=== PATIENT | female | born 1945 | race Caucasian/White ===

== ENCOUNTER 2017-02-25 20:24 | Inpatient (IN) ==
[~2017-02-25 20:24] MED LIST: Aspirin 81 MG TAB.CHEW PO SCH
[2017-02-25 21:03] LABS: Bilirubin,Urine Negative (Negative); Blood,Urine Negative (Negative); Clarity,Urine Clear (Clear); Color,Urine Yellow (Yellow); Glucose,Urine (UA) Normal (Normal); Ketones,Urine Negative (Negative); Leukocyte Esterase,Urine Negative (Negative); Nitrite,Urine Negative (Negative); PH,Urine 6.5 pH Units (5.0-8.0); Protein,Urine Negative (Neg-Trace); Specific Gravity,Urine 1.013 (1.010-1.025); Urobilinogen,Urine Normal (Normal)
--- NOTE | 2017-02-25 21:28 | Emergency Department Note ---
Disposition Clinical Impression: Frail elderly, Obesity, History of diabetes mellitus, Cerebrovascular disease, History of hypertension, History of CVA (cerebrovascular accident), History of myocardial infarction, TIA (transient ischemic attack) Disposition: Admitted As Inpatient Forms: Work/School Release, ED Satisfaction Letter General Adult HPI - General Chief complaint: ED Weakness Stated complaint: Weakness Time Seen by Provider: 02/25/17 20:41 Source: EMS Limitations: no limitations - History of Present Illness HPI Narrative: 71-year-old female reports emergency department from the [facility] their concerns for left arm tingling and pain. The patient reports she felt poorly this morning and then developed left arm tingling and some slight weakness about 11 AM but things have resolved. There is no history of slurred speech or facial droop. No neck stiffness rash or fever. No convulsion or confusion. There is no history of lower extremity weakness or right upper extremity weakness. The patient reports she had a stroke a few years ago which affected her right side, she recovered after that. She describes a history of NC but has no coronary stents. She denies falls or injuries. There is no history of chest pain shortness of breath vomiting or diarrhea and no abdominal pain or acute back pain. No leg swelling or pain. The patient reports she had neck surgery, she does not have neck pain. She reports after the numbness and tingling went away she developed some pain in the left arm. There is no history of trauma no coldness blueness numbness of the extremities. There is no history of rash or cough. Pain Scale: 5 - Related Data Home Medications Medication Instructions Recorded Confirmed Aspirin 81 mg PO DAILY 02/25/17 02/25/17 Carvedilol 12.5 mg PO BID 02/25/17 02/25/17 Cholecalciferol (D-3) [Vitamin D] 1,000 unit PO DAILY 02/25/17 02/25/17 Cyanocobalamin (Vitamin B-12) 200 mcg PO BID 02/25/17 02/25/17 [Vitamin B-12] Cyclobenzaprine HCl 2.5 mg PO TID PRN 02/25/17 02/25/17 Diclofenac Sodium 2 gm TP BID 02/25/17 02/25/17 Furosemide [Lasix] 20 mg PO DAILY PRN 02/25/17 02/25/17 Nitroglycerin 0.2 mg TD DAILY 02/25/17 02/25/17 [place]-3/Dha/Epa/Fish Oil [Fish Oil 1 each PO DAILY 02/25/17 02/25/17 500 mg Softgel] Rosuvastatin Calcium [Crestor] 5 mg PO HS 02/25/17 02/25/17 amLODIPine [Norvasc] 5 mg PO DAILY 02/25/17 02/25/17 hydroCHLOROthiazide 6.25 mg PO DAILY 02/25/17 02/25/17 [Hydrochlorothiazide] Allergies Allergy/AdvReac Type Severity Reaction Status Date / Time acetaminophen Allergy See Verified 02/25/17 21:23 Comments amitriptyline Allergy See Verified 02/25/17 21:23 Comments aspirin Allergy See Verified 02/25/17 21:23 Comments atorvastatin Allergy See Verified 02/25/17 21:23 Comments caffeine Allergy See Verified 02/25/17 21:23 Comments Carbinoxamine Allergy See Verified 02/25/17 21:23 Comments Cefaclor Allergy See Verified 02/25/17 21:23 Comments cephalexin Allergy See Verified 02/25/17 21:23 Comments chlordiazepoxide Allergy See Verified 02/25/17 21:23 Comments codeine Allergy See Verified 02/25/17 21:23 Comments Cortisone Allergy See Verified 02/25/17 21:23 Comments Erythromycin Base Allergy See Verified 02/25/17 21:23 Comments fentanyl Allergy See Verified 02/25/17 21:23 Comments gabapentin Allergy See Verified 02/25/17 21:23 Comments hydrocodone Allergy See Verified 02/25/17 21:23 Comments hydroxyzine Allergy See Verified 02/25/17 21:23 Comments ibuprofen Allergy See Verified 02/25/17 21:23 Comments Iodinated Contrast- Oral and Allergy See Verified 02/25/17 21:23 IV Dye Comments iodine Allergy See Verified 02/25/17 21:23 Comments lansoprazole [From Prevacid] Allergy See Verified 02/25/17 21:23 Comments latex Allergy See Verified 02/25/17 21:23 Comments lidocaine Allergy See Verified 02/25/17 21:23 Comments milk Allergy See Verified 02/25/17 21:23 Comments morphine Allergy See Verified 02/25/17 21:23 Comments nalbuphine [From Nubain] Allergy See Verified 02/25/17 21:23 Comments naproxen [From Anaprox] Allergy See Verified 02/25/17 21:23 Comments nifedipine Allergy See Verified 02/25/17 21:23 Comments omeprazole Allergy See Verified 02/25/17 21:23 Comments prednisone Allergy See Verified 02/25/17 21:23 Comments Procaine Allergy See Verified 02/25/17 21:23 Comments propoxyphene Allergy See Verified 02/25/17 21:23 Comments shellfish derived Allergy See Verified 02/25/17 21:23 Comments Sulfa (Sulfonamide Allergy See Verified 02/25/17 21:23 Antibiotics) Comments Tetracycline Allergy See Verified 02/25/17 21:23 Comments trazodone Allergy See Verified 02/25/17 21:23 Comments tuna oil Allergy See Verified 02/25/17 21:23 Comments pentazocine [From Talwin] AdvReac See Verified 02/25/17 21:23 Comments All systems ED: reviewed and negative except as stated. Past Medical History - Past Medical History Medical history: Reports: CVA, diabetes, hypertension, myocardial infarction Psychiatric history: Reports: anxiety - Social History Smoking Status: Never smoker Smokeless Tobacco Status: No Alcohol use: Reports: none Drug use: Reports: none Physical Exam - General Limitations: no limitations General appearance: alert, in no apparent distress - Head Head exam: atraumatic, normocephalic, normal inspection - Eye Eye exam: Present: normal appearance, PERRL, EOMI - ENT ENT exam: normal exam, normal oropharynx, mucous membranes moist, TM's normal bilaterally, normal external ear exam - Neck Neck exam: Present: normal inspection, full ROM, trachea midline. Absent: tenderness - Chest Chest inspection: Present: symmetric chest wall rise. Absent: tenderness - Respiratory Respiratory exam: Present: normal lung sounds bilaterally. Absent: respiratory distress, wheezes, stridor, accessory muscle use, prolonged expiratory phase - Cardiovascular Cardiovascular exam: Present: regular rate, normal rhythm, normal heart sounds - Abdominal Exam Abdominal exam: Present: soft, Non-Tender, normal bowel sounds. Absent: tenderness, distention, guarding, rebound, rigidity, Ramirez's sign, Rovsing's sign, tenderness at McBurney's Point - Extremities Exam Extremities exam: Present: normal inspection, full ROM, normal capillary refill. Absent: tenderness, pedal edema, joint swelling, calf tenderness - Expanded Lower Extremity Exam Neurovascular/Tendon exam: Present: normal capillary refill. Absent: pulse deficit, motor deficit, sensory deficit, tendon deficit, extremity cold to touch , pallor - Back Exam Back exam: Present: normal inspection, full ROM. Absent: tenderness, CVA tenderness (R), CVA tenderness (L), vertebral tenderness - Neurological Exam Neurological exam: Present: alert, oriented X3, CN II-XII intact. Absent: motor sensory deficit - Psychiatric Psychiatric exam: Present: normal affect, normal mood - Skin Skin exam: Present: warm, dry, intact, normal color. Absent: rash, cyanosis, diaphoresis, erythema, pallor, mottled Course Vital Signs Temperature 98.3 F 02/25/17 20:28 Pulse Rate 71 02/25/17 20:28 Respiratory Rate 18 02/25/17 20:28 Blood Pressure 184/95 02/25/17 20:28 O2 Sat by Pulse Oximetry 97 02/25/17 20:28 Temperature 98.3 F 02/25/17 20:28 Pulse Rate 66 02/25/17 23:04 Respiratory Rate 18 02/25/17 23:04 Blood Pressure 151/74 02/25/17 23:04 O2 Sat by Pulse Oximetry 97 02/25/17 23:04 Oxygen Delivery Oxygen Delivery Room Air Medical Decision Making - MDM Narrative Medical decision making narrative: The patient has a history of a remote cerebral infarct, she also has a history of diabetes hypertension and CAD, she is complaining of left upper extremity numbness and tingling which has resolved. It started about 11 AM. But resolved essentially prior to arrival. The patient was seen at the [facility], they were concerned and sent her to the ED for further evaluation. The patient does not appear to have persistent defects and is essentially out of the window for a stroke alert. CT scan negative. Testing here reveals no major abnormalities in the patient appears to be neurologically stable. The patient is allergic to aspirin, none was ordered secondary to her concerns regarding allergy. Based on the patient's age, known diabetes, history of hypertension, CAD, and previous cerebrovascular event, with concerns for transient neurologic symptoms today, I thought it be appropriate to admit the patient to the hospital. I discussed the case with the hospitalist who has accepted the patient to their care. - Lab Data Lab results reviewed: Yes I reviewed the patient's lab results. Result diagrams: 02/25/17 21:33 02/25/17 21:33 Lab Results 02/25/17 02/25/17 02/25/17 Range/Units 20:55 21:33 21:33 WBC 9.8 (4.3-11.1) K/mcL RBC 5.18 H (3.82-4.97) M/mcL Hgb 14.0 (11.5-15.4) g/dL Hct 43.2 (35.3-44.9) % MCV 83.4 (83.0-100.0) fL MCH 27.0 L (28.0-33.3) pg MCHC 32.4 (31.6-35.5) g/dL RDW 14.5 (11.5-14.5) % Plt Count 301 (140-400) K/mcL MPV 9.1 L (9.4-12.4) fL Immature Gran % 0.5 (0-4) % Seg Neutrophils % 63.4 % Lymphocytes % 24.1 % Monocytes % 9.0 % Eosinophils % 2.6 % Basophils % 0.4 % Neutrophils # 6.2 (1.6-8.9) K/mcL Lymphocytes # 2.4 (0.6-4.6) K/mcL Monocytes # 0.9 (0.0-1.3) K/mcL Eosinophils # 0.3 (0.0-0.6) K/mcL Basophils # 0.0 (0.0-0.2) K/mcL PT 11.8 (9.4-12.1) Seconds INR 1.1 Sodium (136-145) mEq/L Potassium (3.5-4.5) mEq/L Chloride (98-109) mEq/L Carbon Dioxide (19-29) mEq/L BUN (7-20) mg/dL Creatinine (0.57-1.11) mg/dL Est GFR ( Amer) (> 60) Est GFR (Non-Af Amer) (> 60) BUN/Creatinine Ratio (6-26) Glucose (70-99) mg/dL Calculated Osmolality (280-300) Lactic Acid (0.5-2.2) mmol/L Calcium (8.6-10.8) mg/dL Total Bilirubin (0.2-1.2) mg/dL Direct Bilirubin (0.0-0.5) mg/dL Indirect Bilirubin (0.0-1.2) mg/dL AST (5-34) Units/L ALT (0-55) Units/L Alkaline Phosphatase (38-126) Units/L Troponin I (0-0.03) ng/mL C-Reactive Protein (Less than 5) mg/L Serum Total Protein (6.0-8.3) g/dL Albumin (3.5-5.0) g/dL Globulin (2.4-3.5) g/dL Albumin/Globulin Ratio (1.1-2.2) Urine Color Yellow (Yellow) Urine Clarity Clear (Clear) Urine pH 6.5 (5.0-8.0) pH Units Ur Specific [place] 1.013 (1.010-1.025) Urine Protein Negative (Neg-Trace) mg/dL Urine Glucose (UA) Normal (Normal) mg/dL Urine Ketones Negative (Negative) mg/dL Urine Blood Negative (Negative) Urine Nitrite Negative (Negative) Urine Bilirubin Negative (Negative) Urine Urobilinogen Normal (Normal) mg/dL Ur Leukocyte Esterase Negative (Negative) Ur Culture Indicated? NO (NO) 02/25/17 02/25/17 02/25/17 Range/Units 21:33 21:33 21:33 WBC (4.3-11.1) K/mcL RBC (3.82-4.97) M/mcL Hgb (11.5-15.4) g/dL Hct (35.3-44.9) % MCV (83.0-100.0) fL MCH (28.0-33.3) pg MCHC (31.6-35.5) g/dL RDW (11.5-14.5) % Plt Count (140-400) K/mcL MPV (9.4-12.4) fL Immature Gran % (0-4) % Seg Neutrophils % % Lymphocytes % % Monocytes % % Eosinophils % % Basophils % % Neutrophils # (1.6-8.9) K/mcL Lymphocytes # (0.6-4.6) K/mcL Monocytes # (0.0-1.3) K/mcL Eosinophils # (0.0-0.6) K/mcL Basophils # (0.0-0.2) K/mcL PT (9.4-12.1) Seconds INR Sodium 138 (136-145) mEq/L Potassium 4.1 (3.5-4.5) mEq/L Chloride 104 (98-109) mEq/L Carbon Dioxide 24 (19-29) mEq/L BUN 17 (7-20) mg/dL Creatinine 0.85 (0.57-1.11) mg/dL Est GFR ( Amer) > 60 (> 60) Est GFR (Non-Af Amer) > 60 (> 60) BUN/Creatinine Ratio 20 (6-26) Glucose 120 H (70-99) mg/dL Calculated Osmolality 289 (280-300) Lactic Acid 1.1 (0.5-2.2) mmol/L Calcium 10.2 (8.6-10.8) mg/dL Total Bilirubin 0.7 (0.2-1.2) mg/dL Direct Bilirubin 0.2 (0.0-0.5) mg/dL Indirect Bilirubin 0.5 (0.0-1.2) mg/dL AST 18 (5-34) Units/L ALT 20 (0-55) Units/L Alkaline Phosphatase 88 (38-126) Units/L Troponin I 0.00 (0-0.03) ng/mL C-Reactive Protein 8 H (Less than 5) mg/L Serum Total Protein 7.8 (6.0-8.3) g/dL Albumin 3.8 (3.5-5.0) g/dL Globulin 4.0 H (2.4-3.5) g/dL Albumin/Globulin Ratio 1.0 L (1.1-2.2) Urine Color (Yellow) Urine Clarity (Clear) Urine pH (5.0-8.0) pH Units Ur Specific [place] (1.010-1.025) Urine Protein (Neg-Trace) mg/dL Urine Glucose (UA) (Normal) mg/dL Urine Ketones (Negative) mg/dL Urine Blood (Negative) Urine Nitrite (Negative) Urine Bilirubin (Negative) Urine Urobilinogen (Normal) mg/dL Ur Leukocyte Esterase (Negative) Ur Culture Indicated? (NO) - Radiology Data Radiology results reviewed: Yes I reviewed the patient's radiology results.
[2017-02-25 21:41] LABS: Basophils % 0.4 %; Eosinophils # 0.3 K/mcL (0.0-0.6); Eosinophils % 2.6 %; Hematocrit 43.2 % (35.3-44.9); Immature Granulocytes % 0.5 % (0-4); Lymphocytes # 2.4 K/mcL (0.6-4.6); Lymphocytes % 24.1 %; Mean Corpuscular HGB Conc 32.4 g/dL (31.6-35.5); Mean Corpuscular Volume 83.4 fL (83.0-100.0); Mean Platelet Volume 9.1 fL (9.4-12.4); Monocytes # 0.9 K/mcL (0.0-1.3); Neutrophils # 6.2 K/mcL (1.6-8.9); Platelet Count 301 K/mcL (140-400); Red Blood Count 5.18 M/mcL (3.82-4.97); Red Cell Distribution Width 14.5 % (11.5-14.5); Segmented Neutrophils % 63.4 %
[2017-02-25 21:47] LABS: INR 1.1; Prothrombin Time 11.8 Seconds (9.4-12.1)
[2017-02-25 21:57] LABS: Alanine Aminotransferase 20 Units/L (0-55); Albumin 3.8 g/dL (3.5-5.0); Alkaline Phosphatase 88 Units/L (38-126); Aspartate Amino Transferase 18 Units/L (5-34); BUN/Creatinine Ratio 20 (6-26); Bilirubin,Direct 0.2 mg/dL (0.0-0.5); Bilirubin,Indirect 0.5 mg/dL (0.0-1.2); Bilirubin,Total 0.7 mg/dL (0.2-1.2); Blood Urea Nitrogen 17 mg/dL (7-20); C-Reactive Protein 8 mg/L (Less than 5); Calcium 10.2 mg/dL (8.6-10.8); Carbon Dioxide 24 mEq/L (19-29); Chloride 104 mEq/L (98-109); Glucose 120 mg/dL (70-99); Osmolality,Calculated 289 (280-300); Potassium 4.1 mEq/L (3.5-4.5); Sodium 138 mEq/L (136-145); Total Protein 7.8 g/dL (6.0-8.3); eGFR For African Americans > 60 (> 60); eGFR For Non-African Americans > 60 (> 60)
--- NOTE | 2017-02-25 23:35 | Internal Med History&Physical ---
<Reid Howell - Last Filed: 02/26/17 02:20> Date of Encounter: 02/26/17 Time of Encounter: 23:35 Assessment and Plan (1) CVA (cerebral vascular accident) Current visit: Yes Status: Acute Residual left arm weakness and numbness. Prior CVA with no residual deficits. CT brain negative. MRI brain ordered. Carotid U/S pending. Echo pending Give ASA 325mg now, Continue regular ASA 81mg daily (patient reports abdominal discomfort from enteric coated ASA) PT/OT/ST consulted Bedside swallow eval pending Continue to monitor Neurology consulted, please call/ notify neurology in AM Qualifiers: CVA mechanism: unspecified Qualified Code(s): I63.9 - Cerebral infarction, unspecified (2) CAD (coronary artery disease) Current visit: Yes Status: Acute No cardiac stents. Continue to monitor. PAtient takes NTG patch for CP daily prn Recommend ASA daily and continued statin. Qualifiers: Coronary Disease-Associated Artery/Lesion type: unspecified vessel or lesion type [place] vs. transplanted heart: [place] heart Associated angina: angina presence unspecified Qualified Code(s): I25.10 - Atherosclerotic heart disease of [place] coronary artery without angina pectoris (3) HLD (hyperlipidemia) Current visit: Yes Status: Acute Lipid panel pending. Continue home med: Crestor Qualifiers: Hyperlipidemia type: unspecified Qualified Code(s): E78.5 - Hyperlipidemia , unspecified (4) HTN (hypertension) Current visit: Yes Status: Acute Continue home Meds: Coreg, HCTZ, Lasix, Norvasc (patient denies allergy to Nifedipine even though its on her allergy list, nurse will remove it from allergy list) Qualifiers: Hypertension type: unspecified Qualified Code(s): I10 - Essential (primary ) hypertension (5) Chronic pain disorder Current visit: Yes Status: Acute Pain is in pain management for chronic back/ neck pain. Continue pain control (6) History of diabetes mellitus Current visit: Yes Status: Acute Diet controlled. Continue corrective dose SSI (7) Morbid obesity with BMI of 40.0-44.9, adult Current visit: Yes Status: Acute Discussed diet modification and exercise (8) DVT prophylaxis Current visit: Yes Status: Acute Heparin SubQ TID Internal Medicine - H&P: HPI Chief complaint: Left arm weakness Admitted From: Home Plans for Post Hospital Care: Home History of present illness: Ms. Grossman is a 71 year old female with a PMH of CVA, DM, hypertension, and CAD [facility] c/o left arm tingling and weakness since about 11 AM. She reports ongoing numbness and tingling and she now has pain in the left arm and right face tingling. Patient reports waiting until this evening to come to the ED because she thought the symptoms would go away. She reports prior h/o neck surgery but denies contralateral upper extremity tingling, weakness, or pain. Patient reports recovering from a stroke a few years ago which affected her right side. Patient reports abdominal discomfort from enteric coated Aspirin. Patient denies fever, chills, CP, SOB, abd pain, N/ V/D, confusion, slurred speech, vision changes, facial droop, neck stiffness, recent trauma, rash, lower extremity weakness, or right upper extremity weakness. Past Med Surg Social Fam HX - Past Medical History Medical history: coronary artery disease, CVA, diabetes, hypertension, myocardial infarction Psychiatric history: anxiety - Past Surgical History Surgical History: orthopedic, other (plate in neck) - Social History Smoking Status: Never smoker Smokeless Tobacco Status: No Alcohol use: none Drug use: none Current living situation: Home, With Family Activity Level: Independent ambulation - Family History Mother Hx Family Cancer: Yes (breast) Hx Family Endocrine Disorder: Yes (DM) Father Hx Family Cancer: Yes (lung) Internal Medicine - H&P: Meds Aspirin 81 mg PO DAILY 02/25/17 [History] Carvedilol 12.5 mg PO BID 02/25/17 [History] Cholecalciferol (D-3) [Vitamin D] 1,000 unit PO DAILY 02/25/17 [History] Cyanocobalamin (Vitamin B-12) [Vitamin B-12] 200 mcg PO BID 02/25/17 [History] Cyclobenzaprine HCl 2.5 mg PO TID PRN 02/25/17 [History] Diclofenac Sodium 2 gm TP BID 02/25/17 [History] Furosemide [Lasix] 20 mg PO DAILY PRN 02/25/17 [History] Nitroglycerin 0.2 mg TD DAILY 02/25/17 [History] [place]-3/Dha/Epa/Fish Oil [Fish Oil 500 mg Softgel] 1 each PO DAILY 02/25/17 [ History] Rosuvastatin Calcium [Crestor] 5 mg PO HS 02/25/17 [History] amLODIPine [Norvasc] 5 mg PO DAILY 02/25/17 [History] hydroCHLOROthiazide [Hydrochlorothiazide] 6.25 mg PO DAILY 02/25/17 [History] 3 Allergy/AdvReac Type Severity Reaction Status Date / Time acetaminophen Allergy See Verified 02/25/17 21:23 Comments amitriptyline Allergy See Verified 02/25/17 21:23 Comments atorvastatin Allergy See Verified 02/25/17 21:23 Comments caffeine Allergy See Verified 02/25/17 21:23 Comments Carbinoxamine Allergy See Verified 02/25/17 21:23 Comments Cefaclor Allergy See Verified 02/25/17 21:23 Comments cephalexin Allergy See Verified 02/25/17 21:23 Comments chlordiazepoxide Allergy See Verified 02/25/17 21:23 Comments codeine Allergy See Verified 02/25/17 21:23 Comments Cortisone Allergy See Verified 02/25/17 21:23 Comments Erythromycin Base Allergy See Verified 02/25/17 21:23 Comments fentanyl Allergy See Verified 02/25/17 21:23 Comments gabapentin Allergy See Verified 02/25/17 21:23 Comments hydrocodone Allergy See Verified 02/25/17 21:23 Comments hydroxyzine Allergy See Verified 02/25/17 21:23 Comments ibuprofen Allergy See Verified 02/25/17 21:23 Comments Iodinated Contrast- Oral and Allergy See Verified 02/25/17 21:23 IV Dye Comments iodine Allergy See Verified 02/25/17 21:23 Comments lansoprazole [From Prevacid] Allergy See Verified 02/25/17 21:23 Comments latex Allergy See Verified 02/25/17 21:23 Comments lidocaine Allergy See Verified 02/25/17 21:23 Comments milk Allergy See Verified 02/25/17 21:23 Comments morphine Allergy See Verified 02/25/17 21:23 Comments nalbuphine [From Nubain] Allergy See Verified 02/25/17 21:23 Comments naproxen [From Anaprox] Allergy See Verified 02/25/17 21:23 Comments nifedipine Allergy See Verified 02/25/17 21:23 Comments omeprazole Allergy See Verified 02/25/17 21:23 Comments prednisone Allergy See Verified 02/25/17 21:23 Comments Procaine Allergy See Verified 02/25/17 21:23 Comments propoxyphene Allergy See Verified 02/25/17 21:23 Comments shellfish derived Allergy See Verified 02/25/17 21:23 Comments Sulfa (Sulfonamide Allergy See Verified 02/25/17 21:23 Antibiotics) Comments Tetracycline Allergy See Verified 02/25/17 21:23 Comments trazodone Allergy See Verified 02/25/17 21:23 Comments tuna oil Allergy See Verified 02/25/17 21:23 Comments pentazocine [From Talwin] AdvReac See Verified 02/25/17 21:23 Comments All Systems PM: A 10-system review of systems was performed and is negative for pertinent findings except as documented above in the HPI. - Constitutional Constitutional: weakness, no chills, no fatigue, no fever(s), no weight gain, no weight loss - EENT Eyes: no change in vision, no loss of peripheral vision Nose, mouth and throat: no nasal congestion, no sore throat - Cardiovascular Cardiovascular ROS IM: no chest pain, no palpitations - Respiratory Respiratory: no cough, no dyspnea, no excessive phlegm production - Gastrointestinal Gastrointestinal: no abdominal pain, no diarrhea, no nausea, no vomiting - Genitourinary Genitourinary: no dysuria, no urinary frequency, no urinary urgency - Musculoskeletal Musculoskeletal ROS IM: back pain, limited range of motion, muscle weakness, numbness, tingling - Integumentary Integumentary IM: no erythema, no rash - Neurological Neurological ROS: focal weakness, numbness, tingling, weakness, no abnormal speech, no confusion, no dizziness, no headache(s), no memory loss, no other visual disturbances - Psychiatric Psychiatric: anxiety, depression - Endocrine Endocrine IM: no polydipsia, no polyphagia, no polyuria - Constitutional Vitals: Temp Pulse Resp BP Pulse Ox 98.3 F 66 18 151/74 97 02/25/17 20:28 02/25/17 23:04 02/25/17 23:04 02/25/17 23:04 02/25/17 23:04 General appearance: Present: cooperative, A&O X 3, morbidly obese, pleasant, no acute distress, answers questions appropriately - Head Head exam: Present: atraumatic, normal inspection, normocephalic - Eye Eye exam: Present: EOMI, PERRL - ENT ENT exam: Present: mucous membranes moist, normal oropharynx - Neck Neck exam general surgery: Present: full ROM, normal inspection, supple. Absent : tenderness - Respiratory Respiratory exam: Present: CTAB. Absent: wheezes - Cardiovascular Cardiovascular exam: Present: RRR, +S1, +S2 - GI/Abdominal GI/Abdominal exam: Present: normal bowel sounds, soft. Absent: distended, guarding, rebound - Extremities Exam Extremities exam: Present: normal capillary refill, normal inspection, radial pulses palpable and symmetrical. Absent: full ROM (decreased strength LUE), pedal edema, tenderness - Back Exam Back exam: Present: full ROM, normal inspection. Absent: paraspinal tenderness , tenderness - Neurological Exam Neurological exam: Present: alert, CN II-XII intact, motor sensory deficit, oriented X3. Absent: altered, strengths equal and symetr throughout, facial droop, speech deficit - Expanded Neurological Exam Neurological exam expanded: Present: protecting the airway. Absent: expressive aphasia Patient oriented to: Present: person, place, time Speech: Absent: slurred Cranial Nerves: EOM's intact PM: Normal, nystagmus PM: Normal, tongue deviation PM: Normal Cerebellar function: heel to knut[place]: Normal Upper motor neuron: Reinaldo neglect: Normal Sensory exam: upper extremity light touch: Abnormal Left Neuro motor strength exam: LUE: 3, RUE: 5, LLE: 5, RLE: 5 Coma Scale Eye Opening: Spontaneous Coma Scale Motor Response: Obeys Commands Coma Scale Verbal Response: Oriented Coma Scale Total: 15 - Psychiatric Psychiatric exam: Present: anxious, flat affect - Skin Skin exam: Present: dry, pallor, warm Internal Med - H&P Results - Labs CBC & Chem 7: 02/25/17 21:33 02/25/17 21:33 - Impressions Impressions Chest X-Ray 02/25/17 20:41 IMPRESSION: No acute abnormality. D/ / 02/25/2017 21:20:01 [facility] Inter[facility] Provider: Junior Luna MD Head CT 02/25/17 20:42 IMPRESSION: No acute intracranial abnormality. D/ / 02/25/2017 21:29:22 Junior Luna MD / [facility] Interpreting Provider: Junior Luna MD <Silvina Everett - Last Filed: 02/26/17 06:13> Date of Encounter: 02/26/17 Time of Encounter: 02:56 Internal Medicine - H&P: HPI History of present illness: Ms. Grossman is a 71 year old female All Systems PM: A 10-system review of systems was performed and is negative for pertinent findings except as documented above in the HPI. - Constitutional Vitals: Temp Pulse Resp BP Pulse Ox 98.1 F 65 18 156/79 97 02/26/17 01:20 02/26/17 01:20 02/26/17 01:20 02/26/17 01:20 02/26/17 01:20 Internal Med - H&P Results - Labs CBC & Chem 7: 02/26/17 04:23 02/26/17 04:23 Labs: Short CBC 02/26/17 Range/Units 04:23 WBC 8.6 (4.3-11.1) K/mcL Hgb 12.7 (11.5-15.4) g/dL Hct 40.9 (35.3-44.9) % Plt Count 298 (140-400) K/mcL Neutrophils # 5.2 (1.6-8.9) K/mcL BMP 02/26/17 04:23 Sodium 139 Potassium 4.0 Chloride 106 Carbon Dioxide 23 BUN 15 Creatinine 0.85 Glucose 142 H Calcium 9.5 - Attending Attestation I have independently seen and examined the patient. Patient is morbidly obese with history of CVA with no residual deficits. Presented to the [facility] for LUE weakness and numbness, she was transferred to [facility] for further evaluation of CVA. Upon arrival to [facility], she had complete resolution of her symptoms. Currently resting in bed and states she if feeling better. Will admit for CVA work up. Neurology consultation requested. I have discussed the case with the resident physician Reid Howell, I agree with his documented findings, disposition, and plan except as listed above.
[2017-02-25] MEDS ORDERED: Naloxone 0.4 MG/ML INJ IVP PRN (23:45)
[2017-02-25] MEDS ORDERED: Insulin DETEMIR 100 UNIT/ML X5UNITS SQ SCH (23:45)
[2017-02-25] MEDS ORDERED: Furosemide 20 MG TABLET PO PRN (23:51)
[2017-02-25] MEDS ORDERED: D5% in Water 1,000 ML IVC PRN (23:56)
[2017-02-25] MEDS ORDERED: *HR* Dextrose 50 % in Water (Syg) 50 ML SYRINGE IVP PRN (23:56)
[2017-02-25] MEDS ORDERED: Dextrose Gel 15 GM PO PRN ×2 (23:56)
[2017-02-26] MEDS ORDERED: Aspirin 325 MG TABLET PO ONE (01:22)
[2017-02-26] MEDS ORDERED: D5% in 0.9% NACL 1,000 ML IVC SCH (01:45)
[2017-02-26] MEDS ORDERED: Aspirin 81 MG TAB.CHEW PO ONE (02:30)
[2017-02-26 05:04] LABS: Basophils % 0.5 %; Eosinophils # 0.2 K/mcL (0.0-0.6); Eosinophils % 2.8 %; Hematocrit 40.9 % (35.3-44.9); Hemoglobin 12.7 g/dL (11.5-15.4); Immature Granulocytes % 0.6 % (0-4); Lymphocytes # 2.3 K/mcL (0.6-4.6); Lymphocytes % 26.3 %; Mean Corpuscular HGB Conc 31.1 g/dL (31.6-35.5); Mean Corpuscular Hemoglobin 26.2 pg (28.0-33.3); Mean Corpuscular Volume 84.5 fL (83.0-100.0); Mean Platelet Volume 9.2 fL (9.4-12.4); Monocytes # 0.8 K/mcL (0.0-1.3); Monocytes % 9.7 %; Neutrophils # 5.2 K/mcL (1.6-8.9); Platelet Count 298 K/mcL (140-400); Red Blood Count 4.84 M/mcL (3.82-4.97); Red Cell Distribution Width 14.5 % (11.5-14.5); Segmented Neutrophils % 60.1 %
[2017-02-26 05:07] LABS: INR 1.2; Prothrombin Time 12.6 Seconds (9.4-12.1)
[2017-02-26 05:10] LABS: Activated Partial Thrombo Time 35.4 Seconds (26.0-36.0)
[2017-02-26 05:24] LABS: BUN/Creatinine Ratio 18 (6-26); Blood Urea Nitrogen 15 mg/dL (7-20); Calcium 9.5 mg/dL (8.6-10.8); Carbon Dioxide 23 mEq/L (19-29); Chloride 106 mEq/L (98-109); Chol/HDL Ratio 4.4 (0-4.9); Cholesterol 200 mg/dL (< 200); Glucose 142 mg/dL (70-99); HDL Cholesterol 45 mg/dL (40-59); LDL Cholesterol,Calculated 137 mg/dL (0-99); Osmolality,Calculated 291 (280-300); Sodium 139 mEq/L (136-145); Triglycerides 90 mg/dL (< 150); eGFR For African Americans > 60 (> 60); eGFR For Non-African Americans > 60 (> 60)
[2017-02-26] MEDS: Famotidine 20 MG/2 ML VIAL IVP SCH ×2 (06:43→20:50)
[2017-02-26] MEDS: *HR* Heparin 5,000 UNIT/ML VIAL SQ SCH ×3 (06:44→20:58)
[2017-02-26 07:05] LABS: Hemoglobin A1C 6.2 %
[2017-02-26] MEDS: Insulin LISPRO 300 UNITS/3 ML VIAL SQ SCH ×4 (07:56→20:49)
[2017-02-26] MEDS ORDERED: Insulin LISPRO 300 UNITS/3 ML VIAL SQ SCH (08:00)
[2017-02-26] MEDS: VITAMIN B PO SCH ×2 (08:05→21:15)
[2017-02-26] MEDS: hydroCHLOROthiazide 25 MG TABLET PO SCH (08:06)
[2017-02-26] MEDS: Cholecalciferol (D-3) 1,000 UNIT TABLET PO SCH (08:06)
[2017-02-26] MEDS: amLODIPine 5 MG TABLET PO SCH (08:07)
[2017-02-26] MEDS: Nitroglycerin 0.2 MG PATCH.TD24 TD SCH (08:34)
[2017-02-26] MEDS ORDERED: *HR* LORazepam 2 MG/ML VIAL IVP ONE ×2 (10:54→18:30)
--- NOTE | 2017-02-26 10:55 | Neurology - Consult Note ---
Date of Encounter: 02/26/17 Time of Encounter: 08:25 Assessment and Plan (1) Left arm weakness Current Visit: Yes Status: Acute This patient has been complaining of left arm weakness numbness as well as pain along with some tingling sensation on the right side of the face. With a history of a stroke certainly we do need to exclude the possibility of any new stroke she is scheduled for an MRI will follow the results As far as the left arm pain and weakness and numbness is constant I really doubt that is related to the stroke but certainly need to be excluded first she did have a history of degenerative disease of cervical spine status post surgery perhaps it could be related to it. She will need stroke workup including echocardiogram as well as carotid monitor her blood pressure and blood sugar need to be monitored also need to monitor for any cardiac arrhythmias. Continue on antiplatelet therapy. His MRI of the brain is negative for acute stroke perhaps she may need imaging studies of the neck but that could be done as an outpatient. Medications physical therapy evaluation to make sure Her gait and balance is stable (2) Left arm pain Current Visit: Yes Status: Acute (3) History of CVA (cerebrovascular accident) Current Visit: Yes Status: Acute History of Present Illness HPI: Ms. Grossman is a 71 year old female with PMH of CVA,( affecting right side no residual defecit) DM, hypertension, and CAD presented to the ED from the [place] [facility] c/o left arm tingling and weakness as well as pain for one day duration, She is complaining of ongoing numbness and tingling as well as pain in the left arm along with right face tingling. as symptoms did not resolve she came to ED, She has history of neck surgery, but denies any symptoms on right arm weakness, or pain. Patient reports abdominal discomfort from enteric coated Aspirin. Patient denies fever, chills, CP, SOB, abd pain, N/V/D, confusion, slurred speech, vision changes, facial droop, neck stiffness, recent trauma. Past Med Surg Social Fam HX - Past Medical History Medical history: coronary artery disease, CVA, diabetes, hypertension, myocardial infarction Psychiatric history: anxiety - Past Surgical History Surgical History: orthopedic, other (plate in neck) - Social History Smoking Status: Never smoker Smokeless Tobacco Status: No Alcohol use: none Drug use: none - Family History Mother Hx Family Cancer: Yes (breast) Hx Family Endocrine Disorder: Yes (DM) Father Hx Family Cancer: Yes (lung) Medications and Allergies Aspirin 81 mg PO DAILY 02/25/17 [History] Carvedilol 12.5 mg PO BID 02/25/17 [History] Cholecalciferol (D-3) [Vitamin D] 1,000 unit PO DAILY 02/25/17 [History] Cyanocobalamin (Vitamin B-12) [Vitamin B-12] 200 mcg PO BID 02/25/17 [History] Cyclobenzaprine HCl 2.5 mg PO TID PRN 02/25/17 [History] Diclofenac Sodium 2 gm TP BID 02/25/17 [History] Furosemide [Lasix] 20 mg PO DAILY PRN 02/25/17 [History] Nitroglycerin 0.2 mg TD DAILY 02/25/17 [History] [place]-3/Dha/Epa/Fish Oil [Fish Oil 500 mg Softgel] 1 each PO DAILY 02/25/17 [ History] Rosuvastatin Calcium [Crestor] 5 mg PO HS 02/25/17 [History] amLODIPine [Norvasc] 5 mg PO DAILY 02/25/17 [History] hydroCHLOROthiazide [Hydrochlorothiazide] 6.25 mg PO DAILY 02/25/17 [History] 3 Allergy/AdvReac Type Severity Reaction Status Date / Time acetaminophen Allergy See Verified 02/25/17 21:23 Comments amitriptyline Allergy See Verified 02/25/17 21:23 Comments atorvastatin Allergy See Verified 02/25/17 21:23 Comments caffeine Allergy See Verified 02/25/17 21:23 Comments Carbinoxamine Allergy See Verified 02/25/17 21:23 Comments Cefaclor Allergy See Verified 02/25/17 21:23 Comments cephalexin Allergy See Verified 02/25/17 21:23 Comments chlordiazepoxide Allergy See Verified 02/25/17 21:23 Comments codeine Allergy See Verified 02/25/17 21:23 Comments Cortisone Allergy See Verified 02/25/17 21:23 Comments Erythromycin Base Allergy See Verified 02/25/17 21:23 Comments fentanyl Allergy See Verified 02/25/17 21:23 Comments gabapentin Allergy See Verified 02/25/17 21:23 Comments hydrocodone Allergy See Verified 02/25/17 21:23 Comments hydroxyzine Allergy See Verified 02/25/17 21:23 Comments ibuprofen Allergy See Verified 02/25/17 21:23 Comments Iodinated Contrast- Oral and Allergy See Verified 02/25/17 21:23 IV Dye Comments iodine Allergy See Verified 02/25/17 21:23 Comments lansoprazole [From Prevacid] Allergy See Verified 02/25/17 21:23 Comments latex Allergy See Verified 02/25/17 21:23 Comments lidocaine Allergy See Verified 02/25/17 21:23 Comments milk Allergy See Verified 02/25/17 21:23 Comments morphine Allergy See Verified 02/25/17 21:23 Comments nalbuphine [From Nubain] Allergy See Verified 02/25/17 21:23 Comments naproxen [From Anaprox] Allergy See Verified 02/25/17 21:23 Comments nifedipine Allergy See Verified 02/25/17 21:23 Comments omeprazole Allergy See Verified 02/25/17 21:23 Comments prednisone Allergy See Verified 02/25/17 21:23 Comments Procaine Allergy See Verified 02/25/17 21:23 Comments propoxyphene Allergy See Verified 02/25/17 21:23 Comments shellfish derived Allergy See Verified 02/25/17 21:23 Comments Sulfa (Sulfonamide Allergy See Verified 02/25/17 21:23 Antibiotics) Comments Tetracycline Allergy See Verified 02/25/17 21:23 Comments trazodone Allergy See Verified 02/25/17 21:23 Comments tuna oil Allergy See Verified 02/25/17 21:23 Comments pentazocine [From Talwin] AdvReac See Verified 02/25/17 21:23 Comments All Systems: A 10-system review of systems was performed and is negative for pertinent findings except as documented above in the HPI. Physical Examination - Vital Signs Vital Signs: Initial Vital Signs Temp Pulse Resp BP Pulse Ox 98.3 F 71 18 184/95 97 02/25/17 20:28 02/25/17 20:28 02/25/17 20:28 02/25/17 20:28 02/25/17 20:28 - Constitutional General appearance: comfortable - Neurologic Sensorimotor examination: intact Motor examination - right side: 5/5: deltoids, biceps, triceps, wrist flexion, wrist extension, brick pitcher, hip flexors, tibialis Anterior, quadriceps, toe extension (EHL), plantarflexion Motor examination - left side: 4/5: deltoids, biceps, triceps, wrist flexion, 5/ 5: hip flexors, brick pitcher, quadriceps, tibialis Anterior, toe extension (EHL), plantarflexion Detailed sensory examination: intact Reflex and gait examination: intact Reflexes: Biceps: 1+, Triceps: 1+, Brachioradialis: 1+, Patella: 1+, Achilles: 1 + Mental Status Examination: awake, alert, oriented to person, oriented to place, oriented to time, follows commands appropriately, answers questions appropriately, no agnosia, no aphasia, no aproxia Cranial nerve examination: PERRL, EOMI, visual rhoades intact, corneal reflexes brisk symmetrically, sensory to face intact, mastication intact, no facial asymmetry is present, no dysarthria, hearing is intact symmetrically, soft palate elevates bilaterally upon phonation, gag reflex intact, flexes SCM and trapezius muscles symmetrically with full power, tongue protrudes midline, no atrophy or facial fasiculations present Cerebellar examination: no dysmetria Results - Laboratory Findings CBC and BMP: 02/26/17 04:23 02/26/17 04:23 Abnormal lab findings: Abnormal lab results MCH 26.2 pg (28.0-33.3) L 02/26/17 04:23 MCHC 31.1 g/dL (31.6-35.5) L 02/26/17 04:23 MPV 9.2 fL (9.4-12.4) L 02/26/17 04:23 PT 12.6 Seconds (9.4-12.1) H 02/26/17 04:23 Glucose 142 mg/dL (70-99) H 02/26/17 04:23 POC Glucose 113 (58-89) H 02/26/17 01:07 Hemoglobin A1c 6.2 % (-5.6) H 02/25/17 04:23 C-Reactive Protein 8 mg/L (Less than 5) H 02/25/17 21:33 Globulin 4.0 g/dL (2.4-3.5) H 02/25/17 21:33 Albumin/Globulin Ratio 1.0 (1.1-2.2) L 02/25/17 21:33 Cholesterol 200 mg/dL (< 200) H 02/26/17 04:23 LDL Cholesterol, Calc 137 mg/dL (0-99) H 02/26/17 04:23 Consult Discharge Plan - Plan [facility]errals: [facility] [Primary Care Provider[facility] -
[2017-02-26] MEDS ORDERED: Ondansetron 4 MG/2 ML VIAL IVP PRN (14:48)
--- NOTE | 2017-02-26 16:36 | Internal Med Progress Note ---
Date of Encounter: 02/26/17 Time of Encounter: 16:34 - Assessment and plan (1) History of CVA (cerebrovascular accident) Current Visit: Yes Status: Acute Assessment and plan: hx previous CVA in 2012 with no residual effects. Now with left arm numbness and tingling that started day of presentation. ASA given on arrival. Head CT negative. MRI brain, Carotid U/S and echo pending. Cont ASA, statin, BB. Neurology following (2) History of diabetes mellitus Current Visit: Yes Status: Acute Assessment and plan: diet controlled. Hgb A1c 6.2Add SSI. Monitor blood sugars and titrate PRN. (3) History of hypertension Current Visit: Yes Status: Acute Assessment and plan: BP controlled. Continue home Meds: Coreg, HCTZ, Lasix, Norvasc (4) DVT prophylaxis Current Visit: Yes Status: Acute Assessment and plan: heparin - Time Spent With Patient less than 15 minutes - Subjective Interval history: Seen and examined at bedside. Says she feels like her left arm weakness and numbness is improving. No blurred, double vision. No headache, no CP, no SOB - Constitutional Vitals: Temp Pulse Resp BP Pulse Ox 98.9 F 64 15 139/69 96 02/26/17 15:13 02/26/17 15:13 02/26/17 15:13 02/26/17 15:13 02/26/17 15:13 General appearance: Present: cooperative, A&O X 3, morbidly obese, pleasant, no acute distress, answers questions appropriately - Head Head exam: Present: atraumatic, normocephalic - Eye Eye exam: Present: PERRL, conjuntiva pink, sclera anicteric Pupils: Present: PERRL - Neck Neck exam general surgery: Present: supple, trachea midline. Absent: lymphadenopathy - Respiratory Respiratory exam: Present: CTAB. Absent: accessory muscle use, rales, rhonchi, wheezes - Cardiovascular Cardiovascular exam: Present: RRR, +S1, +S2. Absent: diastolic murmur, gallop, rubs, systolic murmur - GI/Abdominal GI/Abdominal exam: Present: normal bowel sounds, soft, no peritoneal signs. Absent: distended, tenderness - Extremities Exam Extremities exam: Present: warm, radial pulses palpable and symmetrical. Absent : calf tenderness, cyanotic, pedal edema - Neurological Exam Neurological exam: Present: CN II-XII intact, oriented X3. Absent: pronater drift, facial droop, speech deficit Additional comments: left arm weakness 4/5 - Skin Skin exam: Present: dry, intact Internal Medicine: Result - Labs CBC & Chem 7: 02/26/17 04:23 02/26/17 04:23 Labs: Short CBC 02/26/17 Range/Units 04:23 WBC 8.6 (4.3-11.1) K/mcL Hgb 12.7 (11.5-15.4) g/dL Hct 40.9 (35.3-44.9) % Plt Count 298 (140-400) K/mcL Neutrophils # 5.2 (1.6-8.9) K/mcL BMP 02/26/17 04:23 Sodium 139 Potassium 4.0 Chloride 106 Carbon Dioxide 23 BUN 15 Creatinine 0.85 Glucose 142 H Calcium 9.5 - ABG Interpretation ABG results: PT/INR, D-dimer PT 12.6 Seconds (9.4-12.1) H 02/26/17 04:23 Consult Discharge Plan - Plan Referrals: [facility] [Primary Care Provider] -
[2017-02-27] MEDS ORDERED: Acetaminophen 325 MG TABLET PO ONE (04:41)
[2017-02-27 05:34] LABS: Hematocrit 42.9 % (35.3-44.9); Hemoglobin 13.5 g/dL (11.5-15.4); Mean Corpuscular HGB Conc 31.5 g/dL (31.6-35.5); Mean Corpuscular Hemoglobin 26.7 pg (28.0-33.3); Mean Platelet Volume 9.6 fL (9.4-12.4); Platelet Count 306 K/mcL (140-400); Red Blood Count 5.05 M/mcL (3.82-4.97); Red Cell Distribution Width 14.6 % (11.5-14.5)
[2017-02-27] MEDS: *HR* Heparin 5,000 UNIT/ML VIAL SQ SCH ×3 (05:40→22:44)
[2017-02-27] MEDS: Famotidine 20 MG/2 ML VIAL IVP SCH ×2 (05:42→17:46)
[2017-02-27 05:49] LABS: Alanine Aminotransferase 19 Units/L (0-55); Albumin 3.5 g/dL (3.5-5.0); Albumin/Globulin Ratio 0.9 (1.1-2.2); Alkaline Phosphatase 82 Units/L (38-126); Aspartate Amino Transferase 21 Units/L (5-34); BUN/Creatinine Ratio 16 (6-26); Bilirubin,Total 0.5 mg/dL (0.2-1.2); Blood Urea Nitrogen 15 mg/dL (7-20); Calcium 9.8 mg/dL (8.6-10.8); Carbon Dioxide 25 mEq/L (19-29); Chloride 106 mEq/L (98-109); Globulin 3.8 g/dL (2.4-3.5); Glucose 117 mg/dL (70-99); Osmolality,Calculated 292 (280-300); Sodium 140 mEq/L (136-145); Total Protein 7.3 g/dL (6.0-8.3); eGFR For African Americans > 60 (> 60); eGFR For Non-African Americans 59 (> 60)
[2017-02-27 05:57] LABS: Potassium 4.3 mEq/L (3.5-4.5)
[2017-02-27] MEDS: Insulin LISPRO 300 UNITS/3 ML VIAL SQ SCH ×4 (07:37→22:37)
[2017-02-27] MEDS: Aspirin 81 MG TAB.CHEW PO SCH (07:54)
[2017-02-27] MEDS: Cholecalciferol (D-3) 1,000 UNIT TABLET PO SCH (07:54)
[2017-02-27] MEDS: hydroCHLOROthiazide 25 MG TABLET PO SCH (07:54)
[2017-02-27] MEDS: amLODIPine 5 MG TABLET PO SCH (07:54)
[2017-02-27] MEDS: VITAMIN B PO SCH ×2 (07:55→22:41)
[2017-02-27] MEDS: Nitroglycerin 0.2 MG PATCH.TD24 TD SCH (09:40)
--- NOTE | 2017-02-27 13:24 | Internal Med Progress Note ---
Date of Encounter: 02/27/17 Time of Encounter: 13:17 - Assessment and plan (1) History of CVA (cerebrovascular accident) Current Visit: Yes Status: Acute Assessment and plan: hx previous CVA in 2012 with no residual effects. Presented with left arm numbness and tingling that started day of presentation. ASA given on arrival. Brain MRI negative for acute CVA. Carotid U/S unremarkable. Etiology of sx's unknown at this time. Hx c-spine surgery, possible radiculopathy. C-spine CT, echo pending. Cont ASA, statin, BB. Neurology following (2) CAD (coronary artery disease) Current Visit: Yes Status: Acute Assessment and plan: with hx PA in 2013. Patient reported chest pain afternoon of 02/27/2017. EKG with normal sinus rhythm, no acute ST changes. Patient reports negative stress tests at [facility] 08/2016. Cycle troponin, obtain [facility] records if able. Qualifiers: Coronary Disease-Associated Artery/Lesion type: [place] artery [place] vs. transplanted heart: [place] heart Associated angina: without angina Qualified Code(s): I25.10 - Atherosclerotic heart disease of [place] coronary artery without angina pectoris (3) History of diabetes mellitus Current Visit: Yes Status: Acute Assessment and plan: diet controlled. Hgb A1c 6.2 Add SSI. Monitor blood sugars and titrate PRN. (4) History of hypertension Current Visit: Yes Status: Acute Assessment and plan: BP controlled. Continue home Meds: Coreg, HCTZ, Lasix, Norvasc (5) DVT prophylaxis Current Visit: Yes Status: Acute Assessment and plan: heparin - Time Spent With Patient 25 - 35 minutes - Subjective Interval history: Seen and examined at bedside. Says she feels like her left arm weakness and numbness is improving but now with sx's on the right hand. She aslo reported several episodes of chest pain. Describes as a tnigling feeling, numbess radiates to jaw. NOthing better or worse, sensation goes away on its own. Patient does not think it is her heart. No blurred, double vision. No headache , no CP on my exam, no SOB - Constitutional Vitals: Temp Pulse Resp BP Pulse Ox 97.9 F 62 16 133/65 93 02/27/17 10:57 02/27/17 10:57 02/27/17 10:57 02/27/17 10:57 02/27/17 10:57 General appearance: Present: cooperative, A&O X 3, morbidly obese, pleasant, no acute distress, answers questions appropriately - Head Head exam: Present: atraumatic, normocephalic - Eye Eye exam: Present: PERRL, conjuntiva pink, sclera anicteric Pupils: Present: PERRL - Neck Neck exam general surgery: Present: supple, trachea midline. Absent: lymphadenopathy - Respiratory Respiratory exam: Present: CTAB. Absent: accessory muscle use, rales, rhonchi, wheezes - Cardiovascular Cardiovascular exam: Present: RRR, +S1, +S2. Absent: diastolic murmur, gallop, rubs, systolic murmur - GI/Abdominal GI/Abdominal exam: Present: normal bowel sounds, soft, no peritoneal signs. Absent: distended, tenderness - Extremities Exam Extremities exam: Present: warm, radial pulses palpable and symmetrical. Absent : calf tenderness, cyanotic, pedal edema - Neurological Exam Neurological exam: Present: CN II-XII intact, oriented X3, no focal deficits. Absent: pronater drift, facial droop, speech deficit - Skin Skin exam: Present: dry, intact Internal Medicine: Result - Labs CBC & Chem 7: 02/27/17 04:13 02/27/17 04:13 Labs: Short CBC 02/27/17 Range/Units 04:13 WBC 8.5 (4.3-11.1) K/mcL Hgb 13.5 (11.5-15.4) g/dL Hct 42.9 (35.3-44.9) % Plt Count 306 (140-400) K/mcL BMP 02/27/17 04:13 Sodium 140 Potassium 4.3 Chloride 106 Carbon Dioxide 25 BUN 15 Creatinine 0.94 Glucose 117 H Calcium 9.8 Liver Function 02/27/17 Range/Units 04:13 Total Bilirubin 0.5 (0.2-1.2) mg/dL AST 21 (5-34) Units/L ALT 19 (0-55) Units/L Alkaline Phosphatase 82 (38-126) Units/L Albumin 3.5 (3.5-5.0) g/dL - ABG Interpretation ABG results: PT/INR, D-dimer PT 12.6 Seconds (9.4-12.1) H 02/26/17 04:23 - Impressions Impressions Brain MRI 02/26/17 01:14 IMPRESSION: No acute intracranial abnormality. No evidence of acute infarction. Foci of periventricular and subcortical white matter signal abnormality compatible with mild chronic microvascular ischemic changes. D/ / Sarah Veronica MD / Sarah Veronica MD Interpreting Provider: Sarah Veronica MD Consult Discharge Plan - Plan [facility]errals: [facility] [Primary Care Provider] -
[2017-02-27] MEDS ORDERED: Acetaminophen 325 MG TABLET PO PRN (17:02)
[2017-02-28] MEDS: Acetaminophen 325 MG TABLET PO PRN ×2 (00:10→13:05)
[2017-02-28 03:52] LABS: Hematocrit 41.5 % (35.3-44.9); Hemoglobin 13.3 g/dL (11.5-15.4); Mean Corpuscular Hemoglobin 27.8 pg (28.0-33.3); Mean Corpuscular Volume 86.6 fL (83.0-100.0); Mean Platelet Volume 9.5 fL (9.4-12.4); Platelet Count 278 K/mcL (140-400); Red Blood Count 4.79 M/mcL (3.82-4.97); Red Cell Distribution Width 14.2 % (11.5-14.5)
[2017-02-28 04:07] LABS: Alanine Aminotransferase 18 Units/L (0-55); Albumin 3.4 g/dL (3.5-5.0); Alkaline Phosphatase 80 Units/L (38-126); Aspartate Amino Transferase 15 Units/L (5-34); BUN/Creatinine Ratio 23 (6-26); Bilirubin,Total 0.3 mg/dL (0.2-1.2); Blood Urea Nitrogen 21 mg/dL (7-20); Calcium 9.4 mg/dL (8.6-10.8); Carbon Dioxide 29 mEq/L (19-29); Chloride 105 mEq/L (98-109); Globulin 3.4 g/dL (2.4-3.5); Glucose 108 mg/dL (70-99); Osmolality,Calculated 294 (280-300); Sodium 140 mEq/L (136-145); Total Protein 6.8 g/dL (6.0-8.3); eGFR For African Americans > 60 (> 60); eGFR For Non-African Americans > 60 (> 60)
[2017-02-28 04:28] LABS: Thyroid Stimulating Hormone 1.076 mcIU/mL (0.350-4.840)
[2017-02-28 04:49] LABS: Folate 12.1 ng/mL (7.0-31.4)
[2017-02-28] MEDS: Famotidine 20 MG/2 ML VIAL IVP SCH ×2 (06:35)
[2017-02-28] MEDS: *HR* Heparin 5,000 UNIT/ML VIAL SQ SCH (06:35)
[2017-02-28] MEDS: Insulin LISPRO 300 UNITS/3 ML VIAL SQ SCH ×2 (07:30→11:31)
[2017-02-28] MEDS: Cholecalciferol (D-3) 1,000 UNIT TABLET PO SCH (07:47)
[2017-02-28] MEDS: Aspirin 81 MG TAB.CHEW PO SCH (07:47)
[2017-02-28] MEDS: amLODIPine 5 MG TABLET PO SCH (07:48)
[2017-02-28] MEDS: Nitroglycerin 0.2 MG PATCH.TD24 TD SCH (07:48)
[2017-02-28] MEDS: hydroCHLOROthiazide 25 MG TABLET PO SCH (07:49)
[2017-02-28 11:20] VITALS: BP 153/91
--- NOTE | 2017-02-28 11:27 | Discharge Summary ---
Date of Encounter: 02/28/17 Time of Encounter: 11:54 - Discharge Diagnosis (1) Cervical stenosis of spinal canal Priority: Primary Status: Acute Comments: Richelle Cooper is a 71 female with PMH cervical stenosis, previous CVA, CAD and HTN who presented to [facility] on 02/25/2017 with complaints of left arm paraesthias. She was admitted for further work-up and treatment. CVA was ruled out and it was suspected cervical stenosis was the cause of sx's. She was discharged home in stable condition. presented with left arm numbness and tingling that started day of presentation. S/p cervical fusion in 2013, C-spine CT with mild to moderate bilateral C5-6 foraminal stenosis and mild central canal narrowing. Suspect radiculopathy is the cause of her paresthesias. She has been evaluated by neurosurgery the past who did not recommended physical therapy bit patient unable to tolerate (no surgery indicated at that time per patient). Recommend resuming PT as previously advised and follow up with established neurosurgeon. Symptoms improved at time of discharge. (2) History of CVA (cerebrovascular accident) Priority: Primary Status: Acute Comments: Presented with left arm numbness and tingling that started day of presentation. Hx previous CVA in 2012 with no residual effects. ASA given on arrival. Brain MRI negative for acute CVA. Carotid U/S unremarkable. Suspect secondary to cervical radiculopathy. Cont ASA, statin, BB. Neurology followed. (3) CAD (coronary artery disease) Priority: Primary Status: Acute Comments: with hx [place] in 2013. Patient reported transient chest pain afternoon of 2016. EKG with normal sinus rhythm, no acute ST changes. Serial troponin negative. Had negative stress test at [facility] 08/2016. 02/26/2017 TTE with normal EF , no wall motion abnormalities. Chest pain resolved spontaneously and no recurrence. Cont home ASA, BB, statin. Can follow up with PCP. Qualifiers: Coronary Disease-Associated Artery/Lesion type: [place] artery [place] vs. transplanted heart: [place] heart Associated angina: without angina Qualified Code(s): I25.10 - Atherosclerotic heart disease of [place] coronary artery without angina pectoris (4) History of diabetes mellitus Priority: Primary Status: Acute Comments: diet controlled. Hgb A1c 6.2 (5) History of hypertension Priority: Primary Status: Acute Comments: BP controlled. Continue home Meds: Coreg, HCTZ, Lasix, Norvasc - Discharge Medications Home Medications: Aspirin 81 mg PO DAILY 02/25/17 [History] Carvedilol 12.5 mg PO BID 02/25/17 [History] Cholecalciferol (D-3) [Vitamin D] 1,000 unit PO DAILY 02/25/17 [History] Cyanocobalamin (Vitamin B-12) [Vitamin B-12] 200 mcg PO BID 02/25/17 [History] Cyclobenzaprine HCl 2.5 mg PO TID PRN 02/25/17 [History] Diclofenac Sodium 2 gm TP BID 02/25/17 [History] Furosemide [Lasix] 20 mg PO DAILY PRN 02/25/17 [History] Nitroglycerin 0.2 mg TD DAILY 02/25/17 [History] Badin-3/Dha/Epa/Fish Oil [Fish Oil 500 mg Softgel] 1 each PO DAILY 02/25/17 [ History] Rosuvastatin Calcium [Crestor] 5 mg PO HS 02/25/17 [History] amLODIPine [Norvasc] 5 mg PO DAILY 02/25/17 [History] hydroCHLOROthiazide [Hydrochlorothiazide] 6.25 mg PO DAILY 02/25/17 [History] Allergies/Adverse Reactions: 3 Allergy/AdvReac Type Severity Reaction Status Date / Time amitriptyline Allergy See Verified 02/25/17 21:23 Comments atorvastatin Allergy See Verified 02/25/17 21:23 Comments caffeine Allergy See Verified 02/25/17 21:23 Comments Carbinoxamine Allergy See Verified 02/25/17 21:23 Comments Cefaclor Allergy See Verified 02/25/17 21:23 Comments cephalexin Allergy See Verified 02/25/17 21:23 Comments chlordiazepoxide Allergy See Verified 02/25/17 21:23 Comments codeine Allergy See Verified 02/25/17 21:23 Comments Cortisone Allergy See Verified 02/25/17 21:23 Comments Erythromycin Base Allergy See Verified 02/25/17 21:23 Comments fentanyl Allergy See Verified 02/25/17 21:23 Comments gabapentin Allergy See Verified 02/25/17 21:23 Comments hydrocodone Allergy See Verified 02/25/17 21:23 Comments hydroxyzine Allergy See Verified 02/25/17 21:23 Comments ibuprofen Allergy See Verified 02/25/17 21:23 Comments Iodinated Contrast- Oral and Allergy See Verified 02/25/17 21:23 IV Dye Comments iodine Allergy See Verified 02/25/17 21:23 Comments lansoprazole [From Prevacid] Allergy See Verified 02/25/17 21:23 Comments latex Allergy See Verified 02/25/17 21:23 Comments lidocaine Allergy See Verified 02/25/17 21:23 Comments milk Allergy See Verified 02/25/17 21:23 Comments morphine Allergy See Verified 02/25/17 21:23 Comments nalbuphine [From Nubain] Allergy See Verified 02/25/17 21:23 Comments naproxen [From Anaprox] Allergy See Verified 02/25/17 21:23 Comments nifedipine Allergy See Verified 02/25/17 21:23 Comments omeprazole Allergy See Verified 02/25/17 21:23 Comments prednisone Allergy See Verified 02/25/17 21:23 Comments Procaine Allergy See Verified 02/25/17 21:23 Comments propoxyphene Allergy See Verified 02/25/17 21:23 Comments shellfish derived Allergy See Verified 02/25/17 21:23 Comments Sulfa (Sulfonamide Allergy See Verified 02/25/17 21:23 Antibiotics) Comments Tetracycline Allergy See Verified 02/25/17 21:23 Comments trazodone Allergy See Verified 02/25/17 21:23 Comments tuna oil Allergy See Verified 02/25/17 21:23 Comments pentazocine [From [place]] AdvReac See Verified 02/25/17 21:23 Comments Procedures/tests Complete & Pending: Procedures Performed prior 72 hours Category Date Time Status CT cervical spine wo con [CT] Routine Cat Scan 02/27/17 11:00 Completed MR head/brain wo con [MR] Routine MRI 02/26/17 01:14 Completed EV carotid duplex imaging BI Routine Y 02/26/17 07:00 Completed EV echocardiogram Routine Y 02/26/17 02:21 Completed Date of admission: 02/25/17 23:15 [facility] care physician: [facility] Consults: 02/25/17 23:45 Consult to Occupational Therapy [CONS] Routine Comment: Evaluate, develop and implement POC Reason for Consult: TIA Consult to Physical Therapy [CONS] Routine Comment: Evaluate, develop and implement POC Reason for Consult: TIA Consult to Speech Therapy [CONS] Routine Comment: Evaluate, develop and implement POC Reason for Consult: TIA Call Completed: No 02/26/17 02:15 Consult to Neurology [CONS] Routine Consulting Provider: Neurology [facility] Reason for Consult: TIA Call Completed: No Discharging clinician: Monica Manzanares Anticipated date of discharge: 02/28/17 - Patient Status Disposition: Home, Self-Care Condition: Good Functional capacity at discharge: independent ambulation - Discharge Instructions Follow [facility] With: [facility] [Primary Care Provider] - - Diet and Activity Activity: ambulate only with your walker Diet: advance to your usual diet Interval History: Seen and examined at bedside. She denies CP, no recurrence from yesterday. She does complain of diffuse body pain, says she has been diagnosed with fibromylagia but not able to tolerate past medical treatment. Sx's somewhat improved with home flexeril. She says she feels overall better and wants to go home. Hospital course: See assessment and plan for hospital course - Time Spent with Patient Total time spent providing and/or coordinating discharge services: Greater than 30 minutes (49 minutes spent on discharge) - Constitutional Vitals: Temp Pulse Resp BP Pulse Ox 97.8 F 70 14 153/91 94 02/28/17 11:19 02/28/17 11:19 02/28/17 11:19 02/28/17 11:19 02/28/17 11:19 General appearance: Present: cooperative, A&O X 3, morbidly obese, pleasant, no acute distress, answers questions appropriately - Head Head exam: Present: atraumatic, normocephalic - Eye Eye exam: Present: PERRL, conjuntiva pink, sclera anicteric Pupils: Present: PERRL - Neck Neck exam general surgery: Present: supple, trachea midline. Absent: lymphadenopathy - Respiratory Respiratory exam: Present: CTAB. Absent: accessory muscle use, rales, rhonchi, wheezes - Cardiovascular Cardiovascular exam: Present: RRR, +S1, +S2. Absent: diastolic murmur, gallop, rubs, systolic murmur - GI/Abdominal GI/Abdominal exam: Present: normal bowel sounds, soft, no peritoneal signs. Absent: distended, tenderness - Extremities Exam Extremities exam: Present: warm, radial pulses palpable and symmetrical. Absent : calf tenderness, cyanotic, pedal edema - Neurological Exam Neurological exam: Present: CN II-XII intact, oriented X3, no focal deficits. Absent: pronater drift, facial droop, speech deficit - Skin Skin exam: Present: dry, intact
[2017-02-28] MEDS: VITAMIN B PO SCH (11:31)
--- NOTE | 2017-03-01 08:28 | Carotid Imaging Report ---
Carotid Duplex Patient Name:Richelle Grossman Order Number:[id number] Procedure Date:02/26/2017 Date:1945ge:71 yrs Gender:Female Lt BP:139 / 69 mmHg Location:[facility] Room #: 3B55 [employer] Writer:Loyda Beavers, RVT, RDCS Referring MD:Reid Howell DO enrollment services vice president:[facility] Reading MD:Ricco Wilburn MD Primary Indications:TIA Risk Factors Yes/No Hypertension Yes Diabetes Yes Hypercholesterolemia Yes Impressions: Findings: Bilateral mid ICA has a moderate, 40-59% stenosis. Recommendations: Risk Factor Modification, Medical Therapy, and Follow up exam 12 months. Findings Carotid Duplex: Right: The right proximal common carotid artery has a PSV of 101 cm/s and a EDV of 18 cm/s. The right mid common carotid artery has a PSV of 102 cm/s and a EDV of 20 cm/s. The right distal common carotid artery has a PSV of 92 cm/s and a EDV of 20 cm/s. The right bifurcation has a PSV of 90 cm/s and a EDV of 24 cm/s. There is smooth heterogeneous plaque. The right proximal internal carotid artery has a PSV of 83 cm/s and a EDV of 26 cm/s. There is smooth heterogeneous plaque. There is 40-59% stenosis in the right mid internal carotid artery with a PSV of 146 cm/s and a EDV of 43 cm/s. There is smooth heterogeneous plaque. The right distal internal carotid artery has a PSV of 93 cm/s and a EDV of 25 cm/s. The right eca has a PSV of 258 cm/s and a EDV of 23 cm/s. The right vertebral artery has a PSV of 39 cm/s and a EDV of 13 cm/s. Left: The left proximal common carotid artery has a PSV of 93 cm/s and a EDV of 23 cm/s. The left mid common carotid artery has a PSV of 83 cm/s and a EDV of 2 cm/s. The left distal common carotid artery has a PSV of 78 cm/s and a EDV of 18 cm/s. The left bifurcation has a PSV of 76 cm/s and a EDV of 12 cm/s. There is smooth heterogeneous plaque. There is 40-59% stenosis in the left proximal internal carotid artery with a PSV of 128 cm/s and a EDV of 37 cm/s. There is smooth heterogeneous plaque. There is 40-59% stenosis in the left mid internal carotid artery with a PSV of 123 cm/s and a EDV of 30 cm/s. There is smooth heterogeneous plaque. The left distal internal carotid artery has a PSV of 109 cm/s and a EDV of 36 cm/s. The left eca has a PSV of 177 cm/s and a EDV of 18 cm/s. The left vertebral artery has a PSV of 32 cm/s and a EDV of 6 cm/s. Carotid Results Right PSV EDV Assessment Proximal CCA 101 18 Mid CCA 102 20 Distal CCA 92 20 Bifurcation 90 24 Non Stenotic Plaque Proximal ICA 83 26 Non Stenotic Plaque Mid ICA 146 43 40-59% stenosis Distal ICA 93 25 ECA 258 23 Vertebral Artery 39 13 Left PSV EDV Assessment Proximal CCA 93 23 Mid CCA 83 2 Distal CCA 78 18 Bifurcation 76 12 Non Stenotic Plaque Proximal ICA 128 37 40-59% stenosis Mid ICA 123 30 40-59% stenosis Distal ICA 109 36 ECA 177 18 Vertebral Artery 32 6 Ratio's Right ICA/CCA Ratio: 1.43 Left ICA/CCA Ratio: 1.54 Updated by Ricco Wilburn MD on 02/27/2017 3:53:51 PM electronically signed on 02/27/2017 3:54:15 PM with status of Final
--- NOTE | 2017-03-01 08:36 | Electrocardiograph Report ---
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
--- NOTE | 2017-03-01 10:03 | Electrocardiograph Report ---
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
== END 2017-02-28 14:04 | disposition home or self-care (01) | DRG 552 ==
LOC: EMEROO 20:24 → 3BNU 23:15
PROVIDERS: ADMIT Internal Medicine; ATTEND Registered Nurse